=== PATIENT | female | born 1975 | race African-American/Black ===

== ENCOUNTER 2017-04-21 14:24 | Emergency (ER) | payer BC ==
[2017-04-21] MEDS ORDERED: 0.9 % SODIUM CHLORIDE 10 ML DISP.SYRIN. IV (14:45)
[2017-04-21 14:58] LABS: ADD MAN DIFF? NO
[2017-04-21] MEDS: IV NORMAL SALINE 1000ML BAG 1,000 ML IV (14:59)
[2017-04-21 15:01] LABS: BASO % 1 % (0-3); EOS # 0.1 x10^3/uL (0.0-0.7); EOS % 1 % (0-3); HEMATOCRIT 30.3 % (36.0-47.0); HEMOGLOBIN 10.1 g/dL (12.0-15.5); LYMPH # 1.7 x10^3/uL (1.0-4.8); LYMPH % 35 % (24-48); MEAN CORPUSCULAR HEMOGLOBIN 27 pg (25-35); MEAN CORPUSCULAR HGB CONC 34 g/dL (31-37); MEAN CORPUSCULAR VOLUME 79 fL (79-100); MONO # 0.4 x10^3/uL (0.0-1.1); MONO % 9 % (0-9); NEUT # 2.5 x10^3uL (1.8-7.7); NEUT % 54 % (31-73); PLATELET COUNT 343 x10^3/uL (140-400); RED BLOOD COUNT 3.82 x10^6/uL (3.50-5.40); RED CELL DISTRIBUTION WIDTH 14.1 % (11.5-14.5); WHITE BLOOD COUNT 4.7 x10^3/uL (4.0-11.0)
[2017-04-21 15:13] LABS: ANION GAP 10 (6-14); BLOOD UREA NITROGEN 13 mg/dL (7-20); CALCIUM 8.6 mg/dL (8.5-10.1); CARBON DIOXIDE 28 mmol/L (21-32); CHLORIDE 106 mmol/L (98-107); CREATININE 0.8 mg/dL (0.6-1.0); GFR 95.6; GLUCOSE 180 mg/dL (70-99); POTASSIUM 3.3 mmol/L (3.5-5.1); SODIUM 144 mmol/L (136-145)
[2017-04-21 15:18] LABS: ALBUMIN 3.2 g/dL (3.4-5.0); ALK PHOS 113 U/L (46-116); ALT (SGPT) 19 U/L (14-59); AST (SGOT) 13 U/L (15-37); MAGNESIUM 1.7 mg/dL (1.8-2.4); TOTAL BILIRUBIN 0.1 mg/dL (0.2-1.0); TOTAL PROTEIN 7.4 g/dL (6.4-8.2)
[2017-04-21 15:21] LABS: TROPONINI < 0.017 ng/mL (0.000-0.055)
[2017-04-21 15:26] LABS: NT-PRO BNP 103 pg/mL (0-124); THYROID STIM HORMONE (TSH) 1.659 uIU/mL (0.358-3.74)
[2017-04-21 15:26] LABS: CKMB INDEX 0.3 % (0-4); CKMB MASS 0.6 ng/mL (0.0-3.6); CREATINE KINASE 218 U/L (26-192)
[2017-04-21 16:54] LABS: DIRECT BILIRUBIN < 0.1 mg/dL (0.0-0.2)
[2017-04-21] MEDS: MAGNESIUM SULFATE 2GM 50 ML IV (16:58)
[2017-04-21] MEDS ORDERED: MAGNESIUM CITRATE 296 ML SOLUTION. PO (17:15)
[2017-04-21 17:27] LABS: URINE HCG POC HCG NEGATIVE (Negative)
[2017-04-21 17:27] LABS: BILIRUBIN,URINE NEGATIVE (NEG); COLOR,URINE YELLOW; GLUCOSE,URINE NEGATIVE (NEG); NITRITE,URINE NEGATIVE (NEG); PROTEIN,URINE NEGATIVE (NEG-TRACE)
[2017-04-21 17:33] LABS: AMPHETAMINE/METHAMPHETAMINE NEG (NEG); BARBITURATES NEG (NEG); BENZODIAZEPINES NEG (NEG); CANNABINOIDS NEG (NEG); COCAINE NEG (NEG); METHADONE NEG (NEG); OPIATES NEG (NEG); PHENCYCLIDINE NEG (NEG)
[2017-04-21 17:34] LABS: CLARITY,URINE HAZY; ETHANOL, URINE NEG (NEG)
[2017-04-21 17:35] LABS: BACTERIA,URINE 0 /HPF (0-FEW); RBC,URINE OCC /HPF (0-2); SQUAMOUS EPITHELIAL CELL,UR MOD /LPF; WBC,URINE OCC /HPF (0-4)
[2017-04-21] MEDS: MAGNESIUM CHLORIDE ER 64 MG TABLET.ER PO (17:40)
== END 2017-04-21 17:45 | disposition home or self-care (01) ==
LOC: ER 14:24
DX: F45.8 Other somatoform disorders (principal); E83.42 Hypomagnesemia; E87.6 Hypokalemia; F41.9 Anxiety disorder, unspecified; I10 Essential (primary) hypertension; Z90.49 Acquired absence of other specified parts of digestive tract; Z98.51 Tubal ligation status; Z79.899 Other long term (current) drug therapy
CPT/HCPCS: 36415; 70450; 71046; 80048; 80076; 80307; 81001; 81025; 82553; 83735; 83880; 84443; 84484; 85025; 93005; 96361; 96365; 96375; 99285-25; J2060; J3475; J7030